=== PATIENT | female | born 1980 | race Caucasian/White ===

== ENCOUNTER 2016-09-01 14:38 | Emergency (ER) | payer OTHER ==
[2016-09-01 14:59] VITALS: BP 146/98
--- NOTE | 2016-09-01 15:39 | UC ---
Throat Pain/Nasal Alexx HPI - HPI Summary HPI Summary: sore throat for 1 week, 2 days ago became severe. sinus congestion increasing. - History of Current Complaint Chief Complaint: UCGeneralIllness Stated Complaint: SORE THROAT Time Seen by Provider: 09/01/16 15:31 Hx Obtained From: Patient Hx Last Menstrual Period: Aug ?: No Onset/Duration: Sudden Onset, Lasting Days Severity: Severe Pain Intensity: 7 Pain Scale Used: 0-10 Numeric Cough: Nonproductive Associated Signs & Symptoms: Positive: Dysphagia, Wheezing, Hoarseness, Sinus Discomfort, Nasal Discharge - Epiglottits Risk Factors Epiglottis Risk Factors: Negative - Allergies/Home Medications Allergies/Adverse Reactions: Allergies Allergy/AdvReac Type Severity Reaction Status Date / Time No Known Allergies Allergy Verified 09/01/16 14:59 PMH/Surg Hx/FS Hx/Imm Hx Previously Healthy: Yes Endocrine History Of: Denies: Diabetes, Thyroid Disease Cardiovascular History Of: Reports: Hypertension Denies: Cardiac Disorders, Pacemaker/ICD, Congestive Heart Failure Respiratory History Of: Reports: Asthma Denies: COPD GI/ History Of: Reports: Kidney Stones Denies: Ulcer Comment Only: Renal Disease - HX KIDNEY STONE - Surgical History Surgical History: Yes Surgery Procedure, Year, and Place: CHOLECYSTECTOMY - Family History Family History: neg for HTNor CAD - Social History Alcohol Use: None Substance Use Type: None Smoking Status (MU): Never Smoked Tobacco - Immunization History Most Recent Influenza Vaccination: never Most Recent Tetanus Shot: up to date Most Recent Pneumonia Vaccination: never Review of Systems Constitutional: Negative Skin: Negative Eyes: Negative ENT: Sore Throat, Ear Ache, Nasal Discharge Respiratory: Shortness Of Breath, Cough Cardiovascular: Negative Gastrointestinal: Negative Genitourinary: Negative Motor: Negative Neurovascular: Negative Musculoskeletal: Negative Neurological: Headache Psychological: Negative All Other Systems Reviewed And Are Negative: Yes Physical Exam Triage Information Reviewed: Yes Appearance: Well-Nourished, Ill-Appearing, Pain Distress Vital Signs: Initial Vital Signs Temp 98.9 F 09/01/16 14:53 Pulse 97 09/01/16 14:53 Resp 16 09/01/16 14:53 BP 146/98 09/01/16 14:53 Pulse Ox 98 09/01/16 14:53 Vital Signs Reviewed: Yes Eye Exam: Normal Eyes: Positive: Conjunctiva Clear ENT: Positive: Pharyngeal erythema, Nasal congestion, Nasal drainage, TMs normal Dental Exam: Normal Neck exam: Normal Neck: Positive: Supple, Nontender, Enlarged Nodes @ - bilateral cervical Respiratory Exam: Normal Respiratory: Positive: Chest non-tender, Lungs clear, Normal breath sounds Cardiovascular Exam: Normal Cardiovascular: Positive: RRR, No Murmur, Pulses Normal Abdominal Exam: Normal Abdomen Description: Positive: Nontender, No Organomegaly, Soft Bowel Sounds: Positive: Present Musculoskeletal Exam: Normal Musculoskeletal: Positive: Strength Intact, ROM Intact, No Edema Neurological Exam: Normal Skin Exam: Normal Throat Pain/Nasal Course/Dx - Course Course Of Treatment: hx obtained, medications reviewed, exam performed, medication prescribed. - Differential Dx/Diagnosis Differential Diagnosis/HQI/PQRI: Influenza, Laryngitis, Otitis Media, Pharyngitis, Sinusitis, Tonsillitis, URI Provider Diagnoses: sinustitis. pharyngitis Discharge - Discharge Plan Condition: Stable Disposition: HOME Prescriptions: Azithromycin TAB* [Zithromax TAB (Z-JLUIS) 250 mg #6 tabs] 2 tab PO .TODAY, THEN 1 DAILY #1 jluis predniSONE TAB* [Deltasone TAB*] 40 mg PO DAILY #10 tab Patient Education Materials: Sinusitis (ED) Referrals: Cristobal Fowler MD [Primary Care Provider] - Additional Instructions: Take the medication as prescribed, Increase fluid intake and get plenty of rest. follow up as needed.
== END 2016-09-01 15:46 | disposition home or self-care (01) ==
LOC: UCCORT 14:38
DX: J32.9 Chronic sinusitis, unspecified (principal); J02.9 Acute pharyngitis, unspecified; I10 Essential (primary) hypertension; J45.909 Unspecified asthma, uncomplicated
CPT/HCPCS: 99212; G0463

== ENCOUNTER 2018-03-29 17:28 | Emergency (ER) | payer OTHER ==
[2018-03-29 17:51] VITALS: BP 169/103
--- NOTE | 2018-03-29 18:25 | UC ---
Lower Extremity/Ankle HPI - HPI Summary HPI Summary: Had a loaded cart at work run up the right ankle/ foot. Abrasion, c/o infection. Severe pain, c/o fracture. - History of Current Complaint Chief Complaint: UCLowerExtremity Stated Complaint: RIGHT FOOT INJURY Time Seen by Provider: 03/29/18 17:52 Hx Obtained From: Patient Hx Last Menstrual Period: 03/29/18 ?: No Onset/Duration: Sudden Onset, Lasting Days - 2, Still Present Severity Initially: Moderate Severity Currently: Moderate Pain Intensity: 3 Aggravating Factor(s): Ambulation Alleviating Factor(s): Rest Able to Bear Weight: Yes Related History: Occupational Injury - Allergies/Home Medications Allergies/Adverse Reactions: Allergies Allergy/AdvReac Type Severity Reaction Status Date / Time morphine Allergy Dizziness Verified 03/29/18 17:46 PMH/Surg Hx/FS Hx/Imm Hx Cardiovascular History: Hypertension Respiratory History: Asthma - Surgical History Surgical History: Yes Surgery Procedure, Year, and Place: CHOLECYSTECTOMY. URETERAL STENT PLACEMENT AND LITHOTRIPSY - Family History Known Family History: Positive: Cardiac Disease, Hypertension, Diabetes Family History: neg for HTNor CAD - Social History Occupation: Employed Full-time Lives: With Family Alcohol Use: Rare Substance Use Type: None Smoking Status (MU): Never Smoked Tobacco Have You Smoked in the Last Year: No - Immunization History Most Recent Influenza Vaccination: never Most Recent Tetanus Shot: up to date Most Recent Pneumonia Vaccination: never Review of Systems Musculoskeletal: Arthralgia - right foot and ankle Is Patient Immunocompromised?: No All Other Systems Reviewed And Are Negative: Yes Physical Exam Triage Information Reviewed: Yes Appearance: Well-Appearing, Pain Distress - mild, Obese Vital Signs: Initial Vital Signs Temp 98.8 F 03/29/18 17:42 Pulse 83 03/29/18 17:42 Resp 17 03/29/18 17:42 BP 169/103 03/29/18 17:42 Pulse Ox 99 03/29/18 17:42 Vital Signs Reviewed: Yes Eyes: Positive: Conjunctiva Clear Neck exam: Normal Respiratory Exam: Normal Cardiovascular Exam: Normal Musculoskeletal: Positive: ROM Limited @ - right ankle with pain Neurological: Positive: Other: - increased sensitivity to pinprick medial right foot and ankle below the abrasion. Psychological Exam: Normal Skin: Positive: Other - Abrasion over the right achilles Lower Extremity Course/Dx - Differential Dx/Diagnosis Differential Diagnosis/HQI/PQRI: Cellulitis, Contusion, Fracture (Closed), Sprain Provider Diagnoses: Abrasion right ankle. Contusion right ankle. Neuritits/ neuralgia. Hypertension Discharge - Sign-Out/Discharge Documenting (check all that apply): Patient Departure - Discharge Plan Condition: Fair Disposition: HOME Prescriptions: Indapamide 1.25 mg PO DAILY #90 tablet Ramipril [Altace] 2.5 mg PO BEDTIME #90 capsule Patient Education Materials: Abrasion (ED), Chronic Hypertension (ED) Referrals: Cristobal Fowler MD [Primary Care Provider] - 4 Days (Recheck blood pressure.) Additional Instructions: OFFICE PHONE: [phone]. Dr. Bella Luther has an office that can provide free/ reduced fee appointments. [email or web address] You need follow up for your blood pressure to avoid having a stroke. To follow your blood pressure at home you can get a home BP monitor on [employer] Omron Series 3 with upper arm cuff. $25.12 - Billing Disposition and Condition Condition: FAIR Disposition: Home
== END 2018-03-29 18:43 | disposition home or self-care (01) ==
LOC: UCCORT 17:28
DX: W22.8XXA Striking against or struck by other objects, initial encounter (principal); Y93.9 Activity, unspecified; Y92.9 Unspecified place or not applicable; Y99.0 Civilian activity done for income or pay; S90.511A Abrasion, right ankle, initial encounter; M79.2 Neuralgia and neuritis, unspecified; I10 Essential (primary) hypertension; Z88.5 Allergy status to narcotic agent
CPT/HCPCS: 99212; G0463

== ENCOUNTER 2018-08-14 10:30 | Emergency (ER) | payer SELFPAY ==
--- NOTE | 2018-08-14 10:43 | UC ---
Skin Complaint HPI - HPI Summary HPI Summary: 38 yo female presents with rash to b/l legs. She tells me that over the last week or so she has been sick with "cold" symptoms. Runny and congested sinuses with mild sore throat. She is using an OTC nasal spray for this. Last night noticed some red spots on her thighs and legs that were more numerous this morning. Lesions do not itch and are not painful. 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 She denies fever , chills, SOB, chest pain, dysuria/hematuria, or blood disorder hx. - History of Current Complaint Chief Complaint: UCRash Time Seen by Provider: 08/14/18 10:43 Stated Complaint: SKIN COMPLAINT Hx Obtained From: Patient Hx Last Menstrual Period: 08/12/18 Onset/Duration: Sudden Onset Current Severity: None Pain Intensity: 0 Pain Scale Used: 0-10 Numeric - Allergy/Home Medications Allergies/Adverse Reactions: Allergies Allergy/AdvReac Type Severity Reaction Status Date / Time morphine Allergy Dizziness Verified 08/14/18 10:39 Home Medications: Home Medications NK [No Home Medications Reported] 08/14/18 [History Confirmed 08/14/18] PMH/Surg Hx/FS Hx/Imm Hx - Additional Past Medical History Additional PMH: None - Surgical History Surgical History: Yes Surgery Procedure, Year, and Place: CHOLECYSTECTOMY. URETERAL STENT PLACEMENT AND LITHOTRIPSY - Family History Known Family History: Positive: Cardiac Disease, Hypertension, Diabetes - Social History Occupation: Employed Full-time Lives: With Family Alcohol Use: Rare Substance Use Type: None Smoking Status (MU): Never Smoked Tobacco Have You Smoked in the Last Year: No - Immunization History Most Recent Influenza Vaccination: never Most Recent Tetanus Shot: up to date Most Recent Pneumonia Vaccination: never Review of Systems All Other Systems Reviewed And Are Negative: Yes Constitutional: Positive: Negative Skin: Positive: Rash Eyes: Positive: Negative ENT: Positive: Sore Throat, Nasal Discharge, Sinus Congestion Respiratory: Positive: Negative Cardiovascular: Positive: Negative Gastrointestinal: Positive: Negative Neurovascular: Positive: Negative Neurological: Positive: Negative Psychological: Positive: Negative Physical Exam - Summary Physical Exam Summary: GENERAL: NAD. WDWN. No pain distress. SKIN: B/L thighs and lower legs with non-blanching ?purpura. No open wounds, streaking, warmth, or edema. NTTP. HEENT: Head: AT/NC Eyes: Conjunctiva clear without inflammation or discharge. Ears: Hearing grossly normal. TMs intact, no bulging, erythema, or edema. Nose: Nasal mucosa pink and moist. NTTP maxillary and frontal sinus. Throat: Posterior oropharynx mild erythema and 2+ tonsillar enlargement. No exudates. Uvula midline. No hoarse voice or muffled voice. NECK: Supple. Nontender. No lymphadenopathy. CHEST: CTAB. No r/r/w. No accessory muscle use. Breathing comfortably and in no distress. CV: RRR. Without m/r/g. Pulses intact. Cap refill <2seconds NEURO: Alert. PSYCH: Age appropriate behavior. Triage Information Reviewed: Yes Vital Signs: Initial Vital Signs Temp 98 F 08/14/18 10:36 Pulse 109 08/14/18 10:36 Resp 17 08/14/18 10:36 BP 156/111 08/14/18 10:36 Pulse Ox 98 08/14/18 10:36 Laboratory Tests 08/14/18 10:58 Group A Strep Rapid Negative Vital Signs Reviewed: Yes Course/Dx - Course Course Of Treatment: Spoke with Dr. Samaniego. Pt has no meningismus or hx of blood disorders. This rash could be related to her recent illness and could be viral, but will check CBC and EBV today. Pt advised to f/u with PCP cyril 1 week for recheck or sooner if symptoms worsen. - Diagnoses Provider Diagnosis: Rash Discharge - Sign-Out/Discharge Documenting (check all that apply): Patient Departure All imaging exams completed and their final reports reviewed: No Studies - Discharge Plan Condition: Stable Disposition: HOME Patient Education Materials: Acute Rash (ED) Referrals: Cristobal Fowler MD [Primary Care Provider] - 1 Week Arben Manuel MD [Medical Doctor] - As Soon As Possible Additional Instructions: If you develop a fever, shortness of breath, chest pain, new or worsening symptoms - please call your PCP or go to the ED. Your blood pressure was high at todays visit. Please see your primary provider within 4 weeks for recheck and re-evaluation. I suspect your rash is related to a virus and we have checked some bloodwork today - however if your rash worsens or if your have new symptoms please get rechecked. - Billing Disposition and Condition Condition: STABLE Disposition: Home
[2018-08-14 11:03] VITALS: BP 160/120
[2018-08-14 12:45] LABS: ABS Basophils 0 10^3/ul (0-0.2); ABS Eosinophils 0.1 10^3/ul (0-0.6); ABS Lymphocytes 2.5 10^3/ul (1.0-4.8); ABS Monocytes 0.6 10^3/ul (0-0.8); ABS Neutrophils 6.2 10^3/ul (1.5-7.7); ABS Nucleated RBC 0 10^3/ul; Eosinophil % 1.4 %; Hematocrit 46 % (35-47); Hemoglobin 15.5 g/dl (12.0-16.0); Lymphocyte % 26.8 %; Mean Corpuscular HGB Conc 33 g/dl (31-36); Mean Corpuscular Hemoglobin 30 pg (27-31); Mean Corpuscular Volume 90 fL (80-97); Mean Platelet Volume 8.8 fL (7.4-10.4); Nucleated Red Blood Cells % 0.1; Platelet Count 336 10^3/ul (150-450); Red Blood Count 5.14 10^6/ul (4.00-5.40); Red Cell Distribution Width 15 % (10.5-15); White Blood Count 9.5 10^3/ul (3.5-10.8)
[2018-08-15 14:26] LABS: EBV Capsid Ag IgG Ab Positive (Negative); EBV Capsid Ag IgM Ab Negative (Negative); Epstein-Barr Nuclear Antigen Positive (Negative)
--- NOTE | 2018-08-15 16:30 | UC ---
- Progress Note Progress Note: Please call pt and tell her that her labwork is normal. Please make sure her rash is improved - and if not insure that she has a scheduled f/u with dermatology as instructed at last visit Course/Dx - Diagnoses Provider Diagnoses: Rash Discharge - Sign-Out/Discharge Documenting (check all that apply): Patient Departure All imaging exams completed and their final reports reviewed: No Studies - Discharge Plan Condition: Stable Disposition: HOME Patient Education Materials: Acute Rash (ED) Referrals: Cristobal Fowler MD [Primary Care Provider] - 1 Week Arben Manuel MD [Medical Doctor] - As Soon As Possible Additional Instructions: If you develop a fever, shortness of breath, chest pain, new or worsening symptoms - please call your PCP or go to the ED. Your blood pressure was high at todays visit. Please see your primary provider within 4 weeks for recheck and re-evaluation. I suspect your rash is related to a virus and we have checked some bloodwork today - however if your rash worsens or if your have new symptoms please get rechecked. - Billing Disposition and Condition Condition: STABLE Disposition: Home
== END 2018-08-14 11:15 | disposition home or self-care (01) ==
LOC: UCEAST 10:30
DX: R21 Rash and other nonspecific skin eruption (principal); Z88.5 Allergy status to narcotic agent
CPT/HCPCS: 36415; 85025; 86664; 86665; 87651; 99211; G0463

== ENCOUNTER 2019-10-06 13:02 | Emergency (ER) | payer SELFPAY ==
[2019-10-06 13:14] VITALS: BP 139/97
[2019-10-06 13:34] LABS: Influenza A Molecular Negative (Negative); Influenza B Molecular Negative (Negative)
--- NOTE | 2019-10-06 13:41 | UC ---
General HPI - HPI Summary HPI Summary: <2 days of full body aches and full like symptoms. Has also had some N/V. No diarrhea or abdominal pain. Only took tylenol. 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 Did not get a flu shot. DId have childhood asthma, does not currently have an inhaler. Meds; Reviewed - History of Current Complaint Chief Complaint: UCRespiratory Stated Complaint: FLU SYMPTOMS Time Seen by Provider: 10/06/19 13:22 Hx Last Menstrual Period: 10/04/19 Pain Intensity: 7 - Allergy/Home Medications Allergies/Adverse Reactions: Allergies Allergy/AdvReac Type Severity Reaction Status Date / Time morphine Allergy Dizziness Verified 10/06/19 13:14 prednisone Allergy See Comment Verified 10/06/19 13:14 Home Medications: Home Medications Acetaminophen [Masophen] 1,000 mg PO ONCE PRN 10/06/19 [History Confirmed ] Albuterol HFA INHALER* [Ventolin HFA Inhaler*] 2 puff INH Q4H PRN #1 mdi [Rx] Albuterol HFA INHALER* [Ventolin HFA Inhaler*] 2 puff INH Q4HR PRN #1 mdi [Rx] Spacer/Holding Chamber (NF) [Easivent CHAMBER (NF)] 1 applic INH Q4HR PRN #1 device 10/06/19 [Rx] Spacer/Holding Chamber (NF) [Easivent CHAMBER (NF)] 1 applic INH Q4HR PRN #1 device 10/06/19 [Rx] guaiFENesin [Mucinex] 1 tab PO ONCE PRN 10/06/19 [History Confirmed 10/06/19] PMH/Surg Hx/FS Hx/Imm Hx Previously Healthy: Yes - Surgical History Surgical History: Yes Surgery Procedure, Year, and Place: CHOLECYSTECTOMY. URETERAL STENT PLACEMENT AND LITHOTRIPSY - Family History Known Family History: Positive: Cardiac Disease, Hypertension, Diabetes Family History: neg for HTNor CAD - Social History Alcohol Use: Rare Substance Use Type: None Smoking Status (MU): Never Smoked Tobacco Have You Smoked in the Last Year: No - Immunization History Most Recent Influenza Vaccination: never Most Recent Tetanus Shot: up to date Most Recent Pneumonia Vaccination: never Review of Systems All Other Systems Reviewed And Are Negative: Yes Constitutional: Positive: Fever, Chills ENT: Positive: Sore Throat, Nasal Discharge Respiratory: Positive: Cough Gastrointestinal: Positive: Vomiting, Nausea Physical Exam Triage Information Reviewed: Yes Appearance: Other: - mildly ill appearing Vital Signs: Initial Vital Signs Temp 99.2 F 10/06/19 13:10 Pulse 92 10/06/19 13:10 Resp 18 10/06/19 13:10 BP 139/97 10/06/19 13:10 Pulse Ox 95 10/06/19 13:10 ENT: Positive: Pharyngeal erythema, Nasal congestion, Nasal drainage, Other - TM 's clear fluid b/l Neck: Positive: Supple, Nontender Respiratory: Positive: Lungs clear, Decreased breath sounds Cardiovascular: Positive: RRR, No Murmur Course/Dx - Course Course Of Treatment: This is a 39 yr old with flu-like symptoms Flu: negative Nontoxic appearing, no respiratory distress Plan Recommend albuterol inhaler with spacer every 4 hours as needed for cough,SOB Continue tylenol and/or ibuprofen as needed for pain/fever -take as directed Recommend decongestant such as sudafed and anti-cough such as mucinex IF symptoms persist or worsen, recommend follow up with PCP or return to urgent care - Diagnoses Provider Diagnosis: Viral syndrome, Reactive airway disease Discharge ED - Sign-Out/Discharge Documenting (check all that apply): Patient Departure All imaging exams completed and their final reports reviewed: No Studies - Discharge Plan Condition: Fair Disposition: HOME Prescriptions: Albuterol HFA INHALER* [Ventolin HFA Inhaler*] 2 puff INH Q4H PRN #1 mdi PRN Reason: Cough Albuterol HFA INHALER* [Ventolin HFA Inhaler*] 2 puff INH Q4HR PRN #1 mdi PRN Reason: Cough Spacer/Holding Chamber (NF) [Easivent CHAMBER (NF)] 1 applic INH Q4HR PRN #1 device PRN Reason: Cough Spacer/Holding Chamber (NF) [Easivent CHAMBER (NF)] 1 applic INH Q4HR PRN #1 device PRN Reason: Cough Patient Education Materials: Viral Syndrome (ED), Reactive Airways Disease (ED) Forms: *Work Release Referrals: Cristobal Fowler MD [Primary Care Provider] - Additional Instructions: Recommend albuterol inhaler with spacer every 4 hours as needed for cough,SOB Continue tylenol and/or ibuprofen as needed for pain/fever -take as directed Recommend decongestant such as sudafed and anti-cough such as mucinex IF symptoms persist or worsen, recommend follow up with PCP or return to urgent care - Billing Disposition and Condition Condition: FAIR Disposition: Home
== END 2019-10-06 13:57 | disposition home or self-care (01) ==
LOC: UCEAST 13:02
DX: B34.9 Viral infection, unspecified (principal); J45.909 Unspecified asthma, uncomplicated; J02.9 Acute pharyngitis, unspecified; R09.89 Other specified symptoms and signs involving the circulatory and respiratory systems; Z88.6 Allergy status to analgesic agent; Z88.8 Allergy status to other drugs, medicaments and biological substances
CPT/HCPCS: 99212; G0463